=== PATIENT | female | born 1965 | race Caucasian/White ===

== ENCOUNTER 2017-03-02 09:11 | Day surgery (SDC) | payer MEDICARE ==
[2017-02-28 09:41] VITALS: BMI 19.0
[~2017-03-02 09:11] MED LIST: LACTATED RINGERS 1,000 ML IV SCH
[2017-03-02] MEDS ORDERED: LIDOCAINE 1% 20 ML VIAL (10MG/ML) FOR IV START INTRADERMA ONE (09:38)
[2017-03-02 09:46] VITALS: TEMP 97
[2017-03-02] MEDS ORDERED: PROPOFOL 10 MG/ML 20 ML VIAL IV ONE (10:24)
[2017-03-02] MEDS ORDERED: LIDOCAINE 1% INJ 10MG/ML (20 ML MDV) ONE (10:24)
--- NOTE | 2017-03-02 10:37 | P.GSHP ---
History of Present Illness H&P Date: 03/02/17 Chief Complaint: Change in bowel habits 51-year-old female has not had a prior colonoscopy. She had an abdominal injury several months ago. Since that time she has had problems with constipation. She was found have blood in her stool also recently although does not see blood in her stool. Family history of colon cancer in her father. Abdominal pain has improved. Recent CAT scan and additional workup at [facility]. Past Medical History Past Medical History: Chest Pain / Angina, GERD/Reflux, Rheumatoid Arthritis (RA ) Additional Past Medical History / Comment(s): chest pain for past year-cause unknown, low blood pressure, bronchitis, had stomach issue/pain in January 2017 -"stomach got pushed into my dog"-"swollen colon"-was unable to to have bowel movement-had blood in stool, hx kidney stones History of Any Multi-Drug Resistant Organisms: None Reported Past Surgical History: Joint Replacement, Orthopedic Surgery Additional Past Surgical History / Comment(s): cataract surgery/lens implant ghada eyes, left knee surgery after fall injury, left knee replacement, rt wrist surgery Past Anesthesia/Blood Transfusion Reactions: Previous Problems w/ Anesthesia, Motion Sickness Additional Past Anesthesia/Blood Transfusion Reaction / Comment(s): woke up in middle of wrist surgery Smoking Status: Never smoker - Past Family History Father Family Medical History: Cancer Medications and Allergies Home Medications Medication Instructions Recorded Confirmed Type Calcium Carbonate [Tums] 500 - 1,000 mg PO HS PRN 02/28/17 03/02/17 History Allergies Allergy/AdvReac Type Severity Reaction Status Date / Time Iodinated Contrast- Oral and Allergy Severe Anaphylaxis Verified 02/28/17 09:26 IV Dye Sulfa (Sulfonamide Allergy Severe throat Verified 02/28/17 09:26 Antibiotics) closes iodine Allergy Anaphylaxis Verified 02/28/17 09:26 Latex, Natural Rubber Allergy skiin parry Verified 02/28/17 09:26 Surgical - Exam Vital Signs Temp Pulse Resp BP Pulse Ox 97.0 F L 95 16 127/87 95 03/02/17 09:25 03/02/17 09:25 03/02/17 09:25 03/02/17 09:25 03/02/17 09:25 Physical exam: General: Thin female who appears somewhat malnourished HEENT: Normocephalic, sclerae nonicteric Abdomen: Nontender, nondistended Extremities: No edema Neuro: Alert and oriented Assessment and Plan (1) Change in bowel habits Narrative/Plan: Will proceed with colonoscopy at this time. Current Visit: Yes Status: Acute Code(s): R19.4 - CHANGE IN BOWEL HABIT SNOMED Code(s): 573404169
--- NOTE | 2017-03-02 10:56 | P.PCN ---
Date of Procedure: 03/02/17 Procedure(s) Performed: PREOPERATIVE DIAGNOSIS: Change in bowel habits POSTOPERATIVE DIAGNOSIS: Normal exam PROCEDURE: Colonoscopy ANESTHESIA: MAC SURGEON: Chacorta Cole M.D. SPECIMENS: None ENDOSCOPIC PROCEDURE: The patient was placed on the endoscopy table in the left decubitus position. The Olympus colonoscope was inserted into the anus and passed under direct visualization to the base of the cecum. The appendiceal orifice was visualized. From that point the scope was slowly withdrawn inspecting all surfaces carefully. There were no neoplastic inflammatory or polypoid lesions throughout the cecum, ascending, transverse, descending, sigmoid and rectum. There was no diverticulosis noted. Digital rectal examination was normal. The patient was taken to the recovery room in stable condition per anesthesia guidelines. RECOMMENDATIONS: Increase fiber. As needed MiraLAX. Follow-up colonoscopy 5 years with the patient's family history
[2017-03-02 11:11] VITALS: RESP 18
[2017-03-02 11:14] VITALS: BP 132/81; PULSE 85
== END 2017-03-02 11:50 | disposition home or self-care (01) ==
LOC: ORWHC2ENDO 09:11
PROVIDERS: ATTEND Surgery
DX: R19.4 Change in bowel habit (principal); Z87.828 Personal history of other (healed) physical injury and trauma; Z80.0 Family history of malignant neoplasm of digestive organs; K21.9 Gastro-esophageal reflux disease without esophagitis; M06.9 Rheumatoid arthritis, unspecified; I73.00 Raynaud's syndrome without gangrene; Z91.041 Radiographic dye allergy status; Z91.040 Latex allergy status; Z88.2 Allergy status to sulfonamides; Z91.09 Other allergy status, other than to drugs and biological substances
CPT/HCPCS: 45378; J2001; J2704